=== PATIENT | male | born 1950 | race Caucasian/White ===

== ENCOUNTER 2017-03-07 12:24 | Inpatient (IN) | payer MEDICARE, OTHER ==
[2017-03-07 15:20] LABS: ADD MAN DIFF? NO
[2017-03-07 15:24] LABS: BASOPHILS % 0.1 % (0.0-2.0); HEMATOCRIT 38.6 % (42.0-52.0); HEMOGLOBIN 13.4 g/dl (14.0-18.0); LYMPHOCYTES # 0.7 10^3/ul (0.8-2.9); LYMPHOCYTES % 8.1 % (15.0-51.0); MEAN CORPUSCULAR HEMOGLOBIN 29.8 pg (29.0-33.0); MEAN CORPUSCULAR HGB CONC 34.7 g/dl (32.0-37.0); MEAN PLATELET VOLUME 9.4 fl (7.4-10.4); MONOCYTE # 1.4 10^3/ul (0.3-0.9); MONOCYTES % 15.8 % (0.0-11.0); NEUTROPHIL # 6.6 10^3/ul (1.6-7.5); NEUTROPHILS % 75.4 % (39.0-77.0); PLATELET COUNT 206 10^3/UL (140-415); RED BLOOD COUNT 4.49 10^6/ul (4.70-6.10); RED CELL DISTRIBUTION WIDTH 13.1 % (11.5-14.5)
[2017-03-07 15:24] LABS: WHITE BLOOD COUNT 8.8 10^3/ul (4.8-10.8)
[2017-03-07] MEDS ORDERED: ONDANSETRON 4 MG INJ IV ×2 (15:30→16:00)
[2017-03-07] MEDS: ONDANSETRON (ODT) 4 MG TAB ODT (15:30)
[2017-03-07] MEDS: HYDROCODONE/APAP (10/325) TAB PO (15:30)
[2017-03-07] MEDS ORDERED: ACETAMINOPHEN 325 MG TAB PO (15:30)
[2017-03-07 15:41] LABS: INR 0.95; PROTIME 12.8 Sec (11.9-14.9)
[2017-03-07 15:42] LABS: PARTIAL THROMBOPLASTIN TIME 31.1 Sec (25.0-35.0)
[2017-03-07 15:43] LABS: ANION GAP 14 (8-16); BLOOD UREA NITROGEN 16 mg/dl (7-20); CALCIUM 8.8 mg/dl (8.4-10.2); CARBON DIOXIDE 29 mmol/L (21-31); CHLORIDE 94 mmol/L (97-110); CREATININE 0.71 mg/dl (0.61-1.24); GLUCOSE 210 mg/dl (70-220); SODIUM 133 mmol/L (135-144)
[2017-03-07 15:57] LABS: TROPONIN-I < 0.012 ng/ml (0.00-0.12)
[2017-03-07] MEDS ORDERED: NACL 0.9% 3 ML SYG IV (16:00)
[2017-03-07] MEDS ORDERED: OXYCODONE/ACETAMINOPHEN (5/325) TAB PO (16:00)
[2017-03-07] MEDS ORDERED: DOCUSATE SODIUM 100 MG CAP PO (16:00)
[2017-03-07 16:51] LABS: HEMOGLOBIN A1C 7.6 % (0-5.9)
[2017-03-07] MEDS ORDERED: GLUCOSE GEL 15 GRAM TUBE PO ×2 (17:30)
[2017-03-07] MEDS ORDERED: DEXTROSE 50% 50 ML SYRINGE IV ×2 (17:30)
[2017-03-07] MEDS ORDERED: GLUCOSE GEL 15 GRAM TUBE BUCCAL (17:30)
[2017-03-07] MEDS ORDERED: GLUCAGON 1 MG INJ IM (17:30)
[2017-03-07] MEDS: SOD CHLORIDE 0.9% 1,000 ML IV (20:27)
[2017-03-07] MEDS: LORAZEPAM 2 MG INJ IV (20:28)
[2017-03-07] MEDS: INSULIN GLARGINE [LANtus] 3 ML PEN SC (21:00)
[2017-03-07] MEDS: INSULIN ASPART [NOVOLOG] 3 ML PEN SC ×2 (21:00→21:05)
[2017-03-07] MEDS ORDERED: INSULIN ASPART [NOVOLOG] 3 ML PEN SC (21:00)
[2017-03-07] MEDS: carBAMAZepine CHEW 100 MG CHEW PO (21:01)
[2017-03-07] MEDS: DIVALPROEX (EC) 250 MG TAB PO (21:02)
[2017-03-08] MEDS: INSULIN ASPART [NOVOLOG] 3 ML PEN SC ×8 (01:00→21:00)
[2017-03-08] MEDS: ACCU-CHEK XX ×2 (02:03→21:09)
[2017-03-08] MEDS: hydrALAzine 20 MG INJ IV (02:55)
[2017-03-08] MEDS: SOD CHLORIDE 0.9% 1,000 ML IV ×3 (05:20→18:40)
[2017-03-08] MEDS: PANTOPRAZOLE (EC) 40 MG TAB PO (06:13)
[2017-03-08 06:19] LABS: ADD MAN DIFF? NO
[2017-03-08 06:29] LABS: BASOPHILS % 0.1 % (0.0-2.0); HEMATOCRIT 38.5 % (42.0-52.0); HEMOGLOBIN 13.2 g/dl (14.0-18.0); LYMPHOCYTES # 0.7 10^3/ul (0.8-2.9); LYMPHOCYTES % 6.2 % (15.0-51.0); MEAN CORPUSCULAR HGB CONC 34.3 g/dl (32.0-37.0); MEAN CORPUSCULAR VOLUME 87.5 fl (82.0-101.0); MEAN PLATELET VOLUME 9.7 fl (7.4-10.4); MONOCYTE # 1.4 10^3/ul (0.3-0.9); MONOCYTES % 12.6 % (0.0-11.0); NEUTROPHILS % 80.7 % (39.0-77.0); PLATELET COUNT 190 10^3/UL (140-415); RED CELL DISTRIBUTION WIDTH 13.2 % (11.5-14.5)
[2017-03-08 06:29] LABS: WHITE BLOOD COUNT 11.2 10^3/ul (4.8-10.8)
[2017-03-08 07:11] LABS: ALBUMIN 3.5 g/dl (3.3-4.9); ANION GAP 13 (8-16); BLOOD UREA NITROGEN 15 mg/dl (7-20); CALCIUM 8.1 mg/dl (8.4-10.2); CARBON DIOXIDE 29 mmol/L (21-31); CHLORIDE 95 mmol/L (97-110); CREATININE 0.77 mg/dl (0.61-1.24); GLUCOSE 178 mg/dl (70-220); MAGNESIUM 1.9 mg/dl (1.7-2.5); POTASSIUM 4.1 mmol/L (3.5-5.1); SODIUM 133 mmol/L (135-144)
[2017-03-08] MEDS ORDERED: LORAZEPAM 2 MG INJ (07:25)
[2017-03-08] MEDS: ATENOLOL 100 MG TAB PO (08:41)
[2017-03-08] MEDS: carBAMAZepine CHEW 100 MG CHEW PO ×2 (08:42→21:01)
[2017-03-08] MEDS ORDERED: HYDROCHLOROTHIAZIDE 12.5 MG CAP PO (09:00)
[2017-03-08] MEDS: OXYCODONE/ACETAMINOPHEN (5/325) TAB PO (12:44)
[2017-03-08] MEDS: INSULIN GLARGINE [LANtus] 3 ML PEN SC (21:00)
[2017-03-08] MEDS: DIVALPROEX (EC) 250 MG TAB PO (21:01)
[2017-03-09] MEDS: SOD CHLORIDE 0.9% 1,000 ML IV ×2 (01:23→07:52)
[2017-03-09 05:57] LABS: ADD MAN DIFF? NO
[2017-03-09] MEDS: PANTOPRAZOLE (EC) 40 MG TAB PO (06:37)
[2017-03-09 06:41] LABS: BASOPHILS % 0.2 % (0.0-2.0); HEMATOCRIT 36.2 % (42.0-52.0); HEMOGLOBIN 12.4 g/dl (14.0-18.0); LYMPHOCYTES # 0.9 10^3/ul (0.8-2.9); LYMPHOCYTES % 9.9 % (15.0-51.0); MEAN CORPUSCULAR HEMOGLOBIN 29.7 pg (29.0-33.0); MEAN CORPUSCULAR HGB CONC 34.3 g/dl (32.0-37.0); MEAN CORPUSCULAR VOLUME 86.8 fl (82.0-101.0); MEAN PLATELET VOLUME 9.8 fl (7.4-10.4); MONOCYTE # 0.9 10^3/ul (0.3-0.9); MONOCYTES % 9.3 % (0.0-11.0); NEUTROPHIL # 7.3 10^3/ul (1.6-7.5); NEUTROPHILS % 80.1 % (39.0-77.0); PLATELET COUNT 182 10^3/UL (140-415); RED BLOOD COUNT 4.17 10^6/ul (4.70-6.10)
[2017-03-09 06:41] LABS: WHITE BLOOD COUNT 9.2 10^3/ul (4.8-10.8)
[2017-03-09 07:14] LABS: ANION GAP 13 (8-16); BLOOD UREA NITROGEN 16 mg/dl (7-20); CALCIUM 7.3 mg/dl (8.4-10.2); CARBON DIOXIDE 25 mmol/L (21-31); CHLORIDE 99 mmol/L (97-110); CREATININE 0.67 mg/dl (0.61-1.24); GLUCOSE 143 mg/dl (70-220); MAGNESIUM 2.1 mg/dl (1.7-2.5); PHOSPHORUS 2.4 mg/dl (2.5-4.9); POTASSIUM 3.5 mmol/L (3.5-5.1); SODIUM 133 mmol/L (135-144)
[2017-03-09] MEDS: hydrALAzine 20 MG INJ IV ×2 (07:46→23:22)
[2017-03-09] MEDS: INSULIN ASPART [NOVOLOG] 3 ML PEN SC ×7 (08:36→21:00)
[2017-03-09] MEDS: LISINOPRIL 5 MG TAB PO (08:44)
[2017-03-09] MEDS: OXYCODONE/ACETAMINOPHEN (5/325) TAB PO (08:44)
[2017-03-09] MEDS: carBAMAZepine CHEW 100 MG CHEW PO ×2 (08:45→20:41)
[2017-03-09] MEDS: ATENOLOL 100 MG TAB PO (08:45)
[2017-03-09] MEDS: MAGNESIUM HYDROXIDE 30ML CUP PO (10:10)
[2017-03-09] MEDS: DEXTROSE 5%-0.45% NACL 1,000 ML IV (15:29)
[2017-03-09] MEDS: DIVALPROEX (EC) 250 MG TAB PO (20:41)
[2017-03-09] MEDS: ACCU-CHEK XX (21:01)
[2017-03-09] MEDS: INSULIN GLARGINE [LANtus] 3 ML PEN SC (21:01)
[2017-03-10] MEDS ORDERED: HALOPERIDOL 5 MG INJ IM
[2017-03-10] MEDS: NORepinephrine 8MG/250 ML (PMX 250 ML IV (00:15)
[2017-03-10] MEDS: hydrALAzine 20 MG INJ IV (00:57)
[2017-03-10] MEDS: FUROSEMIDE 20 MG INJ IV ×2 (01:02→01:54)
[2017-03-10] MEDS: LEVALBUTEROL (NEB) 0.63 MG/3 ML AMP HHN (01:04)
[2017-03-10] MEDS ORDERED: EPINEPHrine 0.1 MG/ML SYG (03:00)
[2017-03-10] MEDS: LABETALOL HCL 20MG INJ IV (03:00)
[2017-03-10] MEDS ORDERED: NA BICARBONATE 8.4% 50 ML SYG (03:00)
[2017-03-10] MEDS ORDERED: AMIODARONE 150 MG INJ (03:00)
[2017-03-10] MEDS ORDERED: ATROPINE 1 MG/10 ML SYRINGE (03:00)
[2017-03-10 03:05] LABS: B-TYPE NATRIURETIC PEPTIDE 767 PG/ML (0-125)
[2017-03-10 03:58] LABS: ADD MAN DIFF? NO
[2017-03-10 04:08] LABS: ABNORMAL IP MESSAGE 1; BASOPHIL # 0.1 10^3/ul (0.0-0.1); BASOPHILS % 0.4 % (0.0-2.0); EOSINOPHILS % 0.1 % (0.0-7.0); HEMATOCRIT 46.3 % (42.0-52.0); HEMOGLOBIN 15.3 g/dl (14.0-18.0); LYMPHOCYTES # 2.3 10^3/ul (0.8-2.9); LYMPHOCYTES % 9.8 % (15.0-51.0); MEAN CORPUSCULAR HEMOGLOBIN 29.5 pg (29.0-33.0); MEAN CORPUSCULAR VOLUME 89.4 fl (82.0-101.0); MEAN PLATELET VOLUME 9.9 fl (7.4-10.4); MONOCYTE # 1.7 10^3/ul (0.3-0.9); MONOCYTES % 7.2 % (0.0-11.0); NEUTROPHIL # 18.1 10^3/ul (1.6-7.5); NEUTROPHILS % 78.3 % (39.0-77.0); PLATELET COUNT 299 10^3/UL (140-415); POSITIVE DIFF @See below; RED BLOOD COUNT 5.18 10^6/ul (4.70-6.10); RED CELL DISTRIBUTION WIDTH 13.1 % (11.5-14.5)
[2017-03-10 04:08] LABS: WHITE BLOOD COUNT 23.1 10^3/ul (4.8-10.8)
[2017-03-10 04:22] LABS: CREATINE KINASE 153 IU/L (23-200)
[2017-03-10 04:25] LABS: ALBUMIN 3.7 g/dl (3.3-4.9); ANION GAP 20 (8-16); BLOOD UREA NITROGEN 17 mg/dl (7-20); CALCIUM 7.8 mg/dl (8.4-10.2); CARBON DIOXIDE 22 mmol/L (21-31); CHLORIDE 99 mmol/L (97-110); CREATININE 0.84 mg/dl (0.61-1.24); GLUCOSE 297 mg/dl (70-220); MAGNESIUM 2.4 mg/dl (1.7-2.5); PHOSPHORUS 5.4 mg/dl (2.5-4.9); POTASSIUM 3.4 mmol/L (3.5-5.1); SODIUM 138 mmol/L (135-144)
[2017-03-10 04:35] LABS: CK INDEX 1.5; TROPONIN-I 0.038 ng/ml (0.00-0.12)
[2017-03-10 04:44] LABS: CK-MB 2.31 ng/ml (0.0-2.4)
[2017-03-10] MEDS ORDERED: LEVALBUTEROL (NEB) 0.63 MG/3 ML AMP HHN (05:00)
[2017-03-10 05:19] LABS: AADO2 Arterial 313.4 mmHg (7.0-24.0); AADO2 Arterial 505.3 mmHg (7.0-24.0); Allen Test ACCEPTAB; Arterial Base Excess -0.8 mmol/L (-3.0-3); Arterial Base Excess -4.6 mmol/L (-3.0-3); Arterial COHb 0.3 % (0.0-3.0); Arterial Fraction of Oxyhgb 89.5 % (93.0-99.0); Arterial Fraction of Oxyhgb 98.4 % (93.0-99.0); Arterial HCO3 26.7 mmol/L (22.0-26.0); Arterial MetHb 0.3 % (0.0-1.5); Arterial Total Hemglobin 15.1 g/dl (12.0-18.0); Arterial Total Hemglobin 16.5 g/dl (12.0-18.0); Arterial pCO2 40.6 mmhg (35-45); MODE MASK - SIMPLE; MODE VENT - AC; Site Right Radial
[2017-03-10] MEDS: PANTOPRAZOLE (EC) 40 MG TAB PO (05:54)
[2017-03-10] MEDS ORDERED: PROPOFOL 100 ML (07:24)
[2017-03-10 07:25] LABS: CK INDEX 2.2; CREATINE KINASE 185 IU/L (23-200)
[2017-03-10 07:50] LABS: CK-MB 3.98 ng/ml (0.0-2.4)
[2017-03-10 07:53] LABS: TROPONIN-I 0.176 ng/ml (0.00-0.12)
[2017-03-10] MEDS ORDERED: MIDAZOLAM (DRIP) 50 mg/50 mL 50 ML IV (08:00)
[2017-03-10] MEDS: INSULIN ASPART [NOVOLOG] 3 ML PEN SC ×4 (08:57→17:22)
[2017-03-10] MEDS: LISINOPRIL 5 MG TAB PO (09:00)
[2017-03-10 09:02] LABS: AADO2 Arterial 571.2 mmHg (7.0-24.0); Allen Test ACCEPTAB; Arterial Base Excess -3.1 mmol/L (-3.0-3); Arterial Blood Gas Oxygen Sat 97.6 mmHG (95.0-98.0); Arterial COHb 0.3 % (0.0-3.0); Arterial Fraction of Oxyhgb 97.1 % (93.0-99.0); Arterial HCO3 22.4 mmol/L (22.0-26.0); Arterial MetHb 0.2 % (0.0-1.5); Arterial Total Hemglobin 15.6 g/dl (12.0-18.0); Arterial pCO2 41.5 mmhg (35-45); MODE VENT - AC; Site Right Radial
[2017-03-10] MEDS ORDERED: FENTAnyl (DRIP) 1000 mcg/100mL 100 ML IV (09:25)
[2017-03-10] MEDS: FENTAnyl (DRIP) 1000 mcg/100mL 100 ML IV ×2 (09:49→19:45)
[2017-03-10] MEDS: PROPOFOL 100 ML IV ×2 (09:55→20:21)
[2017-03-10] MEDS ORDERED: VANCOMYCIN IV PER PHARMACY XX (10:00)
[2017-03-10] MEDS ORDERED: DEXTROSE 5%-0.45% NACL 1,000 ML IV (10:00)
[2017-03-10] MEDS: ATENOLOL 100 MG TAB PO (10:27)
[2017-03-10] MEDS: POTASSIUM CHLORIDE 50 ML IVPB ×3 (10:48→14:27)
[2017-03-10] MEDS: VANCOMYCIN 1.75 GM in NS 500 ML IVPB (10:49)
[2017-03-10] MEDS ORDERED: INSULIN ASPART [NOVOLOG] 3 ML PEN SC (12:00)
[2017-03-10] MEDS: carBAMAZepine CHEW 100 MG CHEW PO ×2 (12:16→20:20)
[2017-03-10] MEDS: PIPER-TAZO 3.375 GM IV (PMX) 50 ML IVPB ×2 (12:17→17:16)
[2017-03-10] MEDS: Insulin NOVOLOG SS MODERATE Algorithm(NPO/TPN/ENTERAL FEEDS) SC ×2 (12:28→17:23)
[2017-03-10] MEDS: LIDOCAINE 1% (MPF) 5 ML VIAL SC (13:15)
[2017-03-10] MEDS: SOD CHLORIDE 0.9% 100 ML (13:30)
[2017-03-10 14:10] LABS: CREATINE KINASE 284 IU/L (23-200)
[2017-03-10 14:32] LABS: CK-MB 8.48 ng/ml (0.0-2.4); TROPONIN-I 0.805 ng/ml (0.00-0.12)
[2017-03-10 16:22] LABS: ADD UMIC YES; UR ASCORBIC ACID NEGATIVE (NEGATIVE); UR BILIRUBIN (Dip) NEGATIVE (NEGATIVE); UR BLOOD (Dip) 2+ mg/dL (NEGATIVE); UR CLARITY SLIGHTLY CLOUDY (CLEAR); UR COLOR YELLOW (YELLOW); UR GLUCOSE (Dip) 3+ mg/dL (NEGATIVE); UR KETONES (Dip) 1+ mg/dL (NEGATIVE); UR LEUKOCYTE ESTERASE (Dip) NEGATIVE Leu/ul (NEGATIVE); UR MUCUS FEW /HPF (NONE SEEN); UR NITRITE (Dip) NEGATIVE (NEGATIVE); UR RBC 6 /HPF (0-5); UR SPECIFIC GRAVITY (Dip) 1.015 (1.003-1.030); UR SQUAMOUS EPITHELIAL CELL FEW /HPF (FEW); UR TOTAL PROTEIN (Dip) 3+ mg/dl (NEGATIVE); UR UROBILINOGEN (Dip) NEGATIVE (NEGATIVE); UR WBC 10 /HPF (0-5)
[2017-03-10] MEDS: SUCCINYLCHOLINE CHLORIDE 100 MG/5 ML SYG IV (19:00)
[2017-03-10] MEDS: ETOMIDATE 20 MG INJ IV (19:30)
[2017-03-10] MEDS: SOD CHLORIDE 0.9% 1,000 ML IV (19:47)
[2017-03-10] MEDS: ALBUTEROL/IPRATROPIUM (NEB) 3 ML AMP HHN (20:00)
[2017-03-10] MEDS: INSULIN GLARGINE [LANtus] 3 ML PEN SC (21:00)
[2017-03-10] MEDS: METHYLPREDNISOLONE 125 MG INJ IV (23:07)
[2017-03-10] MEDS: DIVALPROEX (EC) 250 MG TAB PO (23:07)
[2017-03-10] MEDS: VANCOMYCIN 1.25 GM in SODIUM CHLORIDE 0.45 % 250 ML IVPB (23:08)
[2017-03-10] MEDS: ALBUMIN HUMAN 25% 100 ML IV (23:21)
[2017-03-10] MEDS: SOD CHLORIDE 0.9% 500 ML IV (23:41)
[2017-03-11] MEDS: PIPER-TAZO 3.375 GM IV (PMX) 50 ML IVPB ×4 (00:42→22:16)
[2017-03-11] MEDS: ACCU-CHEK XX (01:25)
[2017-03-11] MEDS: FUROSEMIDE 20 MG TAB PO (03:00)
[2017-03-11] MEDS: Insulin NOVOLOG SS MODERATE Algorithm(NPO/TPN/ENTERAL FEEDS) SC ×2 (06:00)
[2017-03-11] MEDS: METHYLPREDNISOLONE 125 MG INJ IV ×3 (06:06→21:14)
[2017-03-11] MEDS: SOD CHLORIDE 0.9% 1,000 ML IV ×3 (06:06→23:54)
[2017-03-11] MEDS: FENTAnyl (DRIP) 1000 mcg/100mL 100 ML IV ×2 (06:08→15:25)
[2017-03-11 06:32] LABS: ADD MAN DIFF? NO
[2017-03-11 06:38] LABS: ABNORMAL IP MESSAGE 1; BASOPHILS % 0.1 % (0.0-2.0); HEMATOCRIT 31.4 % (42.0-52.0); HEMOGLOBIN 10.8 g/dl (14.0-18.0); LYMPHOCYTES # 0.6 10^3/ul (0.8-2.9); LYMPHOCYTES % 4.3 % (15.0-51.0); MEAN CORPUSCULAR HEMOGLOBIN 30.8 pg (29.0-33.0); MEAN CORPUSCULAR HGB CONC 34.4 g/dl (32.0-37.0); MEAN CORPUSCULAR VOLUME 89.5 fl (82.0-101.0); MEAN PLATELET VOLUME 10.6 fl (7.4-10.4); MONOCYTE # 0.7 10^3/ul (0.3-0.9); MONOCYTES % 5.4 % (0.0-11.0); NEUTROPHIL # 11.4 10^3/ul (1.6-7.5); NEUTROPHILS % 89.7 % (39.0-77.0); PLATELET COUNT 179 10^3/UL (140-415); POSITIVE DIFF @See below; RED BLOOD COUNT 3.51 10^6/ul (4.70-6.10); RED CELL DISTRIBUTION WIDTH 13.4 % (11.5-14.5)
[2017-03-11 06:38] LABS: WHITE BLOOD COUNT 12.7 10^3/ul (4.8-10.8)
[2017-03-11] MEDS: INSULIN ASPART [NOVOLOG] 3 ML PEN SC ×4 (07:35→21:22)
[2017-03-11 07:47] LABS: ANION GAP 16 (8-16); BLOOD UREA NITROGEN 31 mg/dl (7-20); CALCIUM 6.6 mg/dl (8.4-10.2); CARBON DIOXIDE 22 mmol/L (21-31); CHLORIDE 103 mmol/L (97-110); CREATININE 1.52 mg/dl (0.61-1.24); GLUCOSE 104 mg/dl (70-220); MAGNESIUM 2.1 mg/dl (1.7-2.5); PHOSPHORUS 2.1 mg/dl (2.5-4.9); POTASSIUM 3.8 mmol/L (3.5-5.1); SODIUM 137 mmol/L (135-144)
[2017-03-11] MEDS: carBAMAZepine CHEW 100 MG CHEW PO ×2 (09:13→21:14)
[2017-03-11] MEDS: ATENOLOL 100 MG TAB PO (09:13)
[2017-03-11] MEDS: VANCOMYCIN 1.25 GM in SODIUM CHLORIDE 0.45 % 250 ML IVPB (09:14)
[2017-03-11] MEDS: LISINOPRIL 5 MG TAB PO (09:14)
[2017-03-11] MEDS: PANTOPRAZOLE 40 MG INJ IV (09:22)
[2017-03-11] MEDS: PROPOFOL 100 ML IV ×2 (09:30→21:30)
[2017-03-11] MEDS ORDERED: HYPOGLYCEMIA PROTOCOL when Glucose is <70 mg/dL or symptomatic <90 mg/dL. XX (10:30)
[2017-03-11] MEDS ORDERED: Discontinue current oral sulfonylureas (glyburide, glipizide, and/or glimepiride) prior to XX (10:30)
[2017-03-11] MEDS ORDERED: INSULIN ASPART [NOVOLOG] 3 ML PEN SC ×4 (11:30→13:00)
[2017-03-11] MEDS: Discontinue current oral sulfonylureas (glyburide, glipizide, and/or glimepiride) prior to XX (11:59)
[2017-03-11] MEDS: HYPOGLYCEMIA PROTOCOL when Glucose is <70 mg/dL or symptomatic <90 mg/dL. XX (12:00)
[2017-03-11] MEDS: NEUTRA-PHOS 250 MG PACKET GTB ×2 (12:42→21:15)
[2017-03-11 17:40] LABS: CREATININE,URINE RANDOM 124.77 mg/dl (20-370)
[2017-03-11 17:44] LABS: SODIUM,URINE RANDOM < 13 mmol/L (30-90)
[2017-03-11] MEDS: VALPROIC ACID LIQUID CUP 250 MG/5 ML CUP NGT (21:14)
[2017-03-11] MEDS: INSULIN GLARGINE [LANtus] 3 ML PEN SC (21:23)
[2017-03-12] MEDS: INSULIN ASPART [NOVOLOG] 3 ML PEN SC ×6 (01:28→21:45)
[2017-03-12] MEDS: FENTAnyl (DRIP) 1000 mcg/100mL 100 ML IV ×2 (01:40→13:00)
[2017-03-12] MEDS ORDERED: ACCU-CHEK XX (02:00)
[2017-03-12] MEDS: ACCU-CHEK XX (02:10)
[2017-03-12] MEDS: PROPOFOL 100 ML IV ×4 (05:08→23:29)
[2017-03-12] MEDS: PANTOPRAZOLE 40 MG INJ IV (05:58)
[2017-03-12] MEDS: PIPER-TAZO 3.375 GM IV (PMX) 50 ML IVPB ×3 (05:58→21:42)
[2017-03-12] MEDS: METHYLPREDNISOLONE 125 MG INJ IV ×3 (05:58→21:41)
[2017-03-12 06:04] LABS: ADD MAN DIFF? NO
[2017-03-12 06:18] LABS: ABNORMAL IP MESSAGE 1; BASOPHILS % 0.1 % (0.0-2.0); HEMATOCRIT 31.9 % (42.0-52.0); HEMOGLOBIN 10.7 g/dl (14.0-18.0); LYMPHOCYTES # 0.5 10^3/ul (0.8-2.9); LYMPHOCYTES % 4.4 % (15.0-51.0); MEAN CORPUSCULAR HEMOGLOBIN 30.1 pg (29.0-33.0); MEAN CORPUSCULAR HGB CONC 33.5 g/dl (32.0-37.0); MEAN CORPUSCULAR VOLUME 89.6 fl (82.0-101.0); MEAN PLATELET VOLUME 10.8 fl (7.4-10.4); MONOCYTE # 0.8 10^3/ul (0.3-0.9); MONOCYTES % 6.8 % (0.0-11.0); NEUTROPHIL # 9.9 10^3/ul (1.6-7.5); PLATELET COUNT 201 10^3/UL (140-415); POSITIVE DIFF @See below; RED BLOOD COUNT 3.56 10^6/ul (4.70-6.10); RED CELL DISTRIBUTION WIDTH 13.5 % (11.5-14.5)
[2017-03-12 06:18] LABS: WHITE BLOOD COUNT 11.2 10^3/ul (4.8-10.8)
[2017-03-12 06:37] LABS: VANCOMYCIN,TROUGH 19.1 ug/ml (10.0-20.0)
[2017-03-12 06:40] LABS: CREATINE KINASE 858 IU/L (23-200)
[2017-03-12 06:51] LABS: ANION GAP 20 (8-16); BLOOD UREA NITROGEN 54 mg/dl (7-20); CALCIUM 7.1 mg/dl (8.4-10.2); CARBON DIOXIDE 22 mmol/L (21-31); CHLORIDE 104 mmol/L (97-110); CREATININE 1.89 mg/dl (0.61-1.24); GLUCOSE 199 mg/dl (70-220); MAGNESIUM 2.6 mg/dl (1.7-2.5); PHOSPHORUS 3.5 mg/dl (2.5-4.9); POTASSIUM 3.5 mmol/L (3.5-5.1); SODIUM 142 mmol/L (135-144)
[2017-03-12 06:52] LABS: IRON 32 ug/dl (35-150)
[2017-03-12 06:53] LABS: CK INDEX 0.5; TROPONIN-I 0.144 ng/ml (0.00-0.12)
[2017-03-12 07:01] LABS: % IRON SATURATION 20 % SAT (22-52); TOTAL IRON BINDING CAPACITY 164 ug/dl (241-421)
[2017-03-12] MEDS: VANCOMYCIN 1.25 GM in SODIUM CHLORIDE 0.45 % 250 ML IVPB (10:00)
[2017-03-12] MEDS: NEUTRA-PHOS 250 MG PACKET GTB (10:25)
[2017-03-12] MEDS: ATENOLOL 100 MG TAB PO (10:26)
[2017-03-12] MEDS: VALPROIC ACID LIQUID CUP 250 MG/5 ML CUP NGT ×2 (10:26→21:41)
[2017-03-12] MEDS: carBAMAZepine CHEW 100 MG CHEW PO ×2 (10:29→21:42)
[2017-03-12] MEDS: SOD CHLORIDE 0.9% 1,000 ML IV (13:00)
[2017-03-12] MEDS: INSULIN GLARGINE [LANtus] 3 ML PEN SC (21:46)
[2017-03-13] MEDS: ACCU-CHEK XX (01:58)
[2017-03-13] MEDS: SOD CHLORIDE 0.9% 1,000 ML IV ×2 (02:01→13:53)
[2017-03-13] MEDS: INSULIN ASPART [NOVOLOG] 3 ML PEN SC ×6 (02:02→20:36)
[2017-03-13] MEDS: hydrALAzine 20 MG INJ IV ×3 (03:09→22:38)
[2017-03-13 05:17] LABS: ADD MAN DIFF? NO
[2017-03-13 05:25] LABS: WHITE BLOOD COUNT 11.5 10^3/ul (4.8-10.8)
[2017-03-13 05:25] LABS: ABNORMAL IP MESSAGE 1; BASOPHILS % 0.2 % (0.0-2.0); HEMATOCRIT 33.9 % (42.0-52.0); HEMOGLOBIN 11.3 g/dl (14.0-18.0); LYMPHOCYTES # 0.5 10^3/ul (0.8-2.9); LYMPHOCYTES % 4.3 % (15.0-51.0); MEAN CORPUSCULAR HEMOGLOBIN 29.7 pg (29.0-33.0); MEAN CORPUSCULAR HGB CONC 33.3 g/dl (32.0-37.0); MEAN PLATELET VOLUME 10.4 fl (7.4-10.4); MONOCYTE # 0.8 10^3/ul (0.3-0.9); MONOCYTES % 6.5 % (0.0-11.0); NEUTROPHILS % 86.5 % (39.0-77.0); PLATELET COUNT 230 10^3/UL (140-415); POSITIVE DIFF @See below; RED BLOOD COUNT 3.81 10^6/ul (4.70-6.10); RED CELL DISTRIBUTION WIDTH 13.3 % (11.5-14.5)
[2017-03-13] MEDS: PANTOPRAZOLE 40 MG INJ IV (05:32)
[2017-03-13] MEDS: METHYLPREDNISOLONE 125 MG INJ IV (05:32)
[2017-03-13] MEDS: PIPER-TAZO 3.375 GM IV (PMX) 50 ML IVPB ×3 (05:32→20:26)
[2017-03-13 06:27] LABS: ANION GAP 16 (8-16); BLOOD UREA NITROGEN 54 mg/dl (7-20); CALCIUM 7.1 mg/dl (8.4-10.2); CARBON DIOXIDE 23 mmol/L (21-31); CHLORIDE 109 mmol/L (97-110); CREATININE 1.53 mg/dl (0.61-1.24); GLUCOSE 217 mg/dl (70-220); MAGNESIUM 2.8 mg/dl (1.7-2.5); PHOSPHORUS 2.7 mg/dl (2.5-4.9); POTASSIUM 3.6 mmol/L (3.5-5.1); SODIUM 144 mmol/L (135-144)
[2017-03-13] MEDS: carBAMAZepine CHEW 100 MG CHEW PO ×2 (08:17→20:25)
[2017-03-13] MEDS: VALPROIC ACID LIQUID CUP 250 MG/5 ML CUP NGT ×2 (08:18→20:25)
[2017-03-13] MEDS: ATENOLOL 100 MG TAB PO ×2 (08:29→20:25)
[2017-03-13] MEDS ORDERED: AMLODIPINE 5 MG TAB PO (09:30)
[2017-03-13] MEDS ORDERED: LORAZEPAM 2 MG INJ IV (09:30)
[2017-03-13] MEDS: AMLODIPINE 10 MG TAB PO (09:55)
[2017-03-13] MEDS: VANCOMYCIN 1.25 GM in SODIUM CHLORIDE 0.45 % 250 ML IVPB (09:58)
[2017-03-13] MEDS: PROPOFOL 100 ML IV (13:51)
[2017-03-13] MEDS: METHYLPREDNISOLONE 40 MG INJ IV ×2 (14:09→20:26)
[2017-03-13] MEDS: INSULIN GLARGINE [LANtus] 3 ML PEN SC (20:37)
[2017-03-13] MEDS: LABETALOL HCL 20MG INJ IV (22:26)
[2017-03-14] MEDS: INSULIN ASPART [NOVOLOG] 3 ML PEN SC ×3 (00:12→08:34)
[2017-03-14] MEDS: ACCU-CHEK XX ×15 (00:18→23:30)
[2017-03-14] MEDS: PROPOFOL 100 ML IV ×2 (01:32→10:33)
[2017-03-14] MEDS: LABETALOL HCL 20MG INJ IV ×2 (01:45→10:26)
[2017-03-14] MEDS: hydrALAzine 20 MG INJ IV ×4 (02:24→20:15)
[2017-03-14] MEDS: PIPER-TAZO 3.375 GM IV (PMX) 50 ML IVPB ×3 (05:46→20:20)
[2017-03-14] MEDS: METHYLPREDNISOLONE 40 MG INJ IV ×3 (05:46→20:21)
[2017-03-14] MEDS: PANTOPRAZOLE 40 MG INJ IV (05:46)
[2017-03-14] MEDS: carBAMAZepine CHEW 100 MG CHEW PO ×2 (08:22→20:16)
[2017-03-14] MEDS: VALPROIC ACID LIQUID CUP 250 MG/5 ML CUP NGT ×2 (08:23→20:15)
[2017-03-14] MEDS: morphine LIQ (10 MG/5 ML) CUP PO (08:24)
[2017-03-14] MEDS: ATENOLOL 100 MG TAB PO ×2 (08:25→20:17)
[2017-03-14] MEDS: AMLODIPINE 10 MG TAB PO (08:25)
[2017-03-14 09:03] LABS: ABNORMAL IP MESSAGE 1; HEMOGLOBIN 12.2 g/dl (14.0-18.0); MEAN CORPUSCULAR HEMOGLOBIN 29.6 pg (29.0-33.0); MEAN CORPUSCULAR HGB CONC 33.9 g/dl (32.0-37.0); MEAN CORPUSCULAR VOLUME 87.4 fl (82.0-101.0); MEAN PLATELET VOLUME 10.2 fl (7.4-10.4); PLATELET COUNT 244 10^3/UL (140-415); POSITIVE DIFF @See below; RED BLOOD COUNT 4.12 10^6/ul (4.70-6.10); RED CELL DISTRIBUTION WIDTH 13.5 % (11.5-14.5)
[2017-03-14 09:07] LABS: ADD MAN DIFF? YES
[2017-03-14 09:10] LABS: ANION GAP 15 (8-16); BLOOD UREA NITROGEN 55 mg/dl (7-20); CALCIUM 7.1 mg/dl (8.4-10.2); CARBON DIOXIDE 24 mmol/L (21-31); CHLORIDE 112 mmol/L (97-110); CREATININE 1.14 mg/dl (0.61-1.24); GLUCOSE 247 mg/dl (70-220); MAGNESIUM 2.9 mg/dl (1.7-2.5); PHOSPHORUS 2.2 mg/dl (2.5-4.9); POTASSIUM 3.2 mmol/L (3.5-5.1); SODIUM 148 mmol/L (135-144)
[2017-03-14] MEDS: VANCOMYCIN 1.25 GM in SODIUM CHLORIDE 0.45 % 250 ML IVPB (10:25)
[2017-03-14] MEDS ORDERED: DEXTROSE 50% 50 ML SYRINGE IV ×2 (10:30)
[2017-03-14] MEDS ORDERED: LABETALOL HCL 20MG INJ IV (10:30)
[2017-03-14] MEDS: POTASSIUM CHLORIDE 50 ML IVPB ×3 (10:32→14:39)
[2017-03-14] MEDS: SOD CHLORIDE 0.45% 1,000 ML IV ×2 (10:34→20:14)
[2017-03-14 10:45] LABS: BAND NEUTROPHILS #M 0.4 10^3/ul (0.0-0.6); BAND NEUTROPHILS % (M) 6 % (0-4); LYMPHOCYTES % (M) 13 % (15-51); METAMYELOCYTES #M 0.4 10^3/ul (0.0-0.0); METAMYELOCYTES %M 5 % (0-0); MONOCYTE #M 0.2 10^3/ul (0.3-0.9); MONOCYTES % (M) 3 % (0-11); PLATELET ESTIMATE NORMAL; SEGMENTED NEUTROPHILS (M) % 74 % (39-77); SMUDGE%M 2 % (0-0)
[2017-03-14] MEDS: INSULIN HUMAN REGULAR 100 UNIT in SOD CHLORIDE 0.9% 99 ML IV (12:55)
[2017-03-14 13:43] LABS: AADO2 Arterial 93.5 mmHg (7.0-24.0); Allen Test ACCEPTAB; Arterial Base Excess -0.5 mmol/L (-3.0-3); Arterial Blood Gas Oxygen Sat 96.3 mmHG (95.0-98.0); Arterial COHb 0.3 % (0.0-3.0); Arterial Fraction of Oxyhgb 95.9 % (93.0-99.0); Arterial HCO3 22.4 mmol/L (22.0-26.0); Arterial MetHb 0.1 % (0.0-1.5); Arterial Total Hemglobin 13.7 g/dl (12.0-18.0); Arterial pCO2 31.8 mmhg (35-45); Blood Gas PS 10; MODE VENT - CPAP; Site Right Radial
[2017-03-14] MEDS: CLONIDINE 0.2 MG/24 HR PATCH TRANSDERM (15:23)
[2017-03-14] MEDS ORDERED: PHENYLephrine 20MG IN 250 ML 0 ML (15:28)
[2017-03-14] MEDS: ALBUTEROL/IPRATROPIUM (NEB) 3 ML AMP HHN ×2 (15:59→20:11)
[2017-03-14] MEDS: niCARdipine 25 MG in SOD CHLORIDE 0.9% 240 ML IV ×2 (16:41→20:48)
[2017-03-14] MEDS ORDERED: INSULIN GLARGINE [LANtus] 3 ML PEN SC (21:00)
[2017-03-15] MEDS: ACCU-CHEK XX ×25 (00:30→23:32)
[2017-03-15] MEDS: ALBUTEROL/IPRATROPIUM (NEB) 3 ML AMP HHN ×4 (01:18→19:46)
[2017-03-15] MEDS: niCARdipine 25 MG in SOD CHLORIDE 0.9% 240 ML IV ×6 (03:11→21:24)
[2017-03-15] MEDS: METHYLPREDNISOLONE 40 MG INJ IV ×3 (05:18→21:22)
[2017-03-15] MEDS: PANTOPRAZOLE 40 MG INJ IV (05:19)
[2017-03-15] MEDS: SOD CHLORIDE 0.45% 1,000 ML IV ×2 (05:20→15:45)
[2017-03-15] MEDS: PIPER-TAZO 3.375 GM IV (PMX) 50 ML IVPB ×3 (05:21→21:22)
[2017-03-15 05:52] LABS: ADD MAN DIFF? NO
[2017-03-15 05:56] LABS: WHITE BLOOD COUNT 8.4 10^3/ul (4.8-10.8)
[2017-03-15 05:56] LABS: ABNORMAL IP MESSAGE 1; BASOPHIL # 0.1 10^3/ul (0.0-0.1); BASOPHILS % 0.7 % (0.0-2.0); HEMATOCRIT 34.8 % (42.0-52.0); HEMOGLOBIN 11.6 g/dl (14.0-18.0); LYMPHOCYTES # 0.5 10^3/ul (0.8-2.9); LYMPHOCYTES % 5.7 % (15.0-51.0); MEAN CORPUSCULAR HEMOGLOBIN 29.8 pg (29.0-33.0); MEAN CORPUSCULAR HGB CONC 33.3 g/dl (32.0-37.0); MEAN CORPUSCULAR VOLUME 89.5 fl (82.0-101.0); MONOCYTE # 0.6 10^3/ul (0.3-0.9); MONOCYTES % 7.2 % (0.0-11.0); NEUTROPHIL # 6.3 10^3/ul (1.6-7.5); NEUTROPHILS % 74.5 % (39.0-77.0); PLATELET COUNT 247 10^3/UL (140-415); POSITIVE DIFF @See below; RED BLOOD COUNT 3.89 10^6/ul (4.70-6.10); RED CELL DISTRIBUTION WIDTH 13.6 % (11.5-14.5)
[2017-03-15 06:20] LABS: ANION GAP 13 (8-16); BLOOD UREA NITROGEN 55 mg/dl (7-20); CALCIUM 6.1 mg/dl (8.4-10.2); CARBON DIOXIDE 23 mmol/L (21-31); CHLORIDE 113 mmol/L (97-110); CREATININE 1.02 mg/dl (0.61-1.24); GLUCOSE 353 mg/dl (70-220); MAGNESIUM 2.7 mg/dl (1.7-2.5); PHOSPHORUS 2.4 mg/dl (2.5-4.9); POTASSIUM 3.2 mmol/L (3.5-5.1); SODIUM 146 mmol/L (135-144)
[2017-03-15] MEDS: hydrALAzine 20 MG INJ IV ×3 (06:48→21:50)
[2017-03-15 07:53] LABS: ANISOCYTOSIS 2+ (0-0); BAND NEUTROPHILS #M 0.5 10^3/ul (0.0-0.6); BAND NEUTROPHILS % (M) 7 % (0-4); GIANT THROMBO% (M) 1 % (0-0); LYMPHOCYTES #M 0.5 10^3/ul (0.8-2.9); LYMPHOCYTES % (M) 7 % (15-51); METAMYELOCYTES #M 0.6 10^3/ul (0.0-0.0); METAMYELOCYTES %M 8 % (0-0); MICROCYTOSIS 1+ (0-0); MONOCYTE #M 0.5 10^3/ul (0.3-0.9); MONOCYTES % (M) 7 % (0-11); MYELOCYTES #M 0.1 10^3/ul (0.0-0.0); MYELOCYTES % (M) 2 % (0-0); PLATELET ESTIMATE NORMAL; POIKILOCYTOSIS 1+ (0-0); POLYCHROMASIA 1+ (0-0); PROMYELOCYTES % (M) 1 % (0-0); SEG NEUT #M 5.8 10^3/ul (1.7-7.5); SEGMENTED NEUTROPHILS (M) % 68 % (39-77); SMUDGE%M 2 % (0-0)
[2017-03-15] MEDS: ATENOLOL 100 MG TAB PO ×2 (09:00→21:00)
[2017-03-15] MEDS: carBAMAZepine CHEW 100 MG CHEW PO ×2 (09:00→21:00)
[2017-03-15] MEDS: AMLODIPINE 10 MG TAB PO (09:00)
[2017-03-15] MEDS: VALPROIC ACID LIQUID CUP 250 MG/5 ML CUP NGT ×2 (09:00→21:00)
[2017-03-15] MEDS: INSULIN HUMAN REGULAR 100 UNIT in SOD CHLORIDE 0.9% 99 ML IV (09:10)
[2017-03-15 09:55] LABS: VANCOMYCIN,TROUGH 13.2 ug/ml (10.0-20.0)
[2017-03-15] MEDS: VANCOMYCIN 1.25 GM in SODIUM CHLORIDE 0.45 % 250 ML IVPB (10:52)
[2017-03-15] MEDS: POTASSIUM CHLORIDE 50 ML IVPB ×2 (12:02→13:59)
[2017-03-16] MEDS: ACCU-CHEK XX ×25 (01:09→23:30)
[2017-03-16] MEDS: ALBUTEROL/IPRATROPIUM (NEB) 3 ML AMP HHN ×4 (01:28→19:33)
[2017-03-16] MEDS: SOD CHLORIDE 0.45% 1,000 ML IV (02:03)
[2017-03-16] MEDS: niCARdipine 25 MG in SOD CHLORIDE 0.9% 240 ML IV ×3 (02:04→13:44)
[2017-03-16 05:18] LABS: WHITE BLOOD COUNT 10.6 10^3/ul (4.8-10.8)
[2017-03-16 05:18] LABS: ABNORMAL IP MESSAGE 1; HEMATOCRIT 35.2 % (42.0-52.0); HEMOGLOBIN 11.7 g/dl (14.0-18.0); MEAN CORPUSCULAR HEMOGLOBIN 29.5 pg (29.0-33.0); MEAN CORPUSCULAR HGB CONC 33.2 g/dl (32.0-37.0); MEAN CORPUSCULAR VOLUME 88.9 fl (82.0-101.0); MEAN PLATELET VOLUME 9.9 fl (7.4-10.4); PLATELET COUNT 260 10^3/UL (140-415); POSITIVE DIFF @See below; RED BLOOD COUNT 3.96 10^6/ul (4.70-6.10); RED CELL DISTRIBUTION WIDTH 13.7 % (11.5-14.5)
[2017-03-16] MEDS: hydrALAzine 20 MG INJ IV ×2 (05:52→20:44)
[2017-03-16] MEDS: METHYLPREDNISOLONE 40 MG INJ IV ×2 (05:52→20:44)
[2017-03-16] MEDS: PANTOPRAZOLE 40 MG INJ IV (05:52)
[2017-03-16] MEDS: PIPER-TAZO 3.375 GM IV (PMX) 50 ML IVPB ×3 (05:52→20:45)
[2017-03-16 05:56] LABS: ADD MAN DIFF? YES
[2017-03-16 06:18] LABS: ANION GAP 13 (8-16); BLOOD UREA NITROGEN 63 mg/dl (7-20); CALCIUM 6.1 mg/dl (8.4-10.2); CARBON DIOXIDE 21 mmol/L (21-31); CHLORIDE 117 mmol/L (97-110); CREATININE 1.06 mg/dl (0.61-1.24); GLUCOSE 132 mg/dl (70-220); MAGNESIUM 2.8 mg/dl (1.7-2.5); PHOSPHORUS 2.6 mg/dl (2.5-4.9); POTASSIUM 3.3 mmol/L (3.5-5.1); SODIUM 148 mmol/L (135-144)
[2017-03-16] MEDS: VALPROIC ACID LIQUID CUP 250 MG/5 ML CUP NGT (08:07)
[2017-03-16] MEDS: ATENOLOL 100 MG TAB PO ×2 (08:08→20:40)
[2017-03-16] MEDS: AMLODIPINE 10 MG TAB PO (08:08)
[2017-03-16] MEDS: carBAMAZepine CHEW 100 MG CHEW PO (08:10)
[2017-03-16 08:30] LABS: ANISOCYTOSIS 1+ (0-0); BAND NEUTROPHILS #M 0.2 10^3/ul (0.0-0.6); BAND NEUTROPHILS % (M) 2 % (0-4); BURR CELLS 1+ (0-0); GIANT THROMBO% (M) 2 % (0-0); LYMPHOCYTES #M 0.5 10^3/ul (0.8-2.9); LYMPHOCYTES % (M) 5 % (15-51); MICROCYTOSIS 1+ (0-0); MONOCYTE #M 1.1 10^3/ul (0.3-0.9); MONOCYTES % (M) 11 % (0-11); MYELOCYTES #M 0.3 10^3/ul (0.0-0.0); MYELOCYTES % (M) 3 % (0-0); PLATELET ESTIMATE NORMAL; POIKILOCYTOSIS 1+ (0-0); POLYCHROMASIA 1+ (0-0); REACTIVE LYMPHOCYTES #M 0.1 10^3/ul (0.0-0.0); REACTIVE LYMPHOCYTES% (M) 1 % (0-0); SEG NEUT #M 8.3 10^3/ul (1.7-7.5); SEGMENTED NEUTROPHILS (M) % 78 % (39-77); SMUDGE%M 4 % (0-0)
[2017-03-16] MEDS: DEXTROSE 5% 1,000 ML IV (10:39)
[2017-03-16] MEDS: VANCOMYCIN 1.25 GM in SODIUM CHLORIDE 0.45 % 250 ML IVPB (10:40)
[2017-03-16] MEDS: POTASSIUM CHLORIDE 50 ML IVPB ×3 (10:52→13:43)
[2017-03-16] MEDS: VALPROATE INJ 500 MG in DEXTROSE 5% 50 ML IVPB ×2 (11:36→20:44)
[2017-03-16] MEDS: CLONIDINE 0.3 MG/24 HR PATCH TRANSDERM (17:02)
[2017-03-16] MEDS: CARBAMAZEPINE 200 MG TAB PO (20:40)
[2017-03-16] MEDS: morphine 2 MG INJ IV (20:42)
[2017-03-17] MEDS: ACCU-CHEK XX ×10 (01:26→08:30)
[2017-03-17] MEDS: niCARdipine 25 MG in SOD CHLORIDE 0.9% 240 ML IV ×3 (01:32→12:56)
[2017-03-17] MEDS: ALBUTEROL/IPRATROPIUM (NEB) 3 ML AMP HHN ×4 (02:00→20:26)
[2017-03-17] MEDS: DEXTROSE 5% 1,000 ML IV (05:08)
[2017-03-17] MEDS: PIPER-TAZO 3.375 GM IV (PMX) 50 ML IVPB ×3 (05:09→21:24)
[2017-03-17] MEDS: PANTOPRAZOLE 40 MG INJ IV (05:09)
[2017-03-17 05:48] LABS: WHITE BLOOD COUNT 14.4 10^3/ul (4.8-10.8)
[2017-03-17 05:48] LABS: ABNORMAL IP MESSAGE 1; HEMATOCRIT 38.6 % (42.0-52.0); HEMOGLOBIN 12.7 g/dl (14.0-18.0); MEAN CORPUSCULAR HEMOGLOBIN 29.5 pg (29.0-33.0); MEAN CORPUSCULAR HGB CONC 32.9 g/dl (32.0-37.0); MEAN CORPUSCULAR VOLUME 89.8 fl (82.0-101.0); MEAN PLATELET VOLUME 10.3 fl (7.4-10.4); PLATELET COUNT 341 10^3/UL (140-415); POSITIVE DIFF @See below; RED CELL DISTRIBUTION WIDTH 14.1 % (11.5-14.5)
[2017-03-17 06:02] LABS: ADD MAN DIFF? YES
[2017-03-17 06:27] LABS: ANION GAP 14 (8-16); BLOOD UREA NITROGEN 70 mg/dl (7-20); CALCIUM 6.4 mg/dl (8.4-10.2); CARBON DIOXIDE 21 mmol/L (21-31); CHLORIDE 111 mmol/L (97-110); CREATININE 1.15 mg/dl (0.61-1.24); GLUCOSE 257 mg/dl (70-220); MAGNESIUM 3.1 mg/dl (1.7-2.5); PHOSPHORUS 2.7 mg/dl (2.5-4.9); POTASSIUM 4.2 mmol/L (3.5-5.1); SODIUM 142 mmol/L (135-144)
[2017-03-17 09:11] LABS: ANISOCYTOSIS 2+ (0-0); BAND NEUTROPHILS #M 0.2 10^3/ul (0.0-0.6); BAND NEUTROPHILS % (M) 2 % (0-4); BURR CELLS 1+ (0-0); GIANT THROMBO% (M) 1 % (0-0); LYMPHOCYTES #M 0.5 10^3/ul (0.8-2.9); LYMPHOCYTES % (M) 4 % (15-51); MICROCYTOSIS 1+ (0-0); MONOCYTES % (M) 7 % (0-11); MYELOCYTES #M 0.1 10^3/ul (0.0-0.0); MYELOCYTES % (M) 1 % (0-0); PLATELET ESTIMATE NORMAL; POIKILOCYTOSIS 1+ (0-0); POLYCHROMASIA 1+ (0-0); REACTIVE LYMPHOCYTES #M 0.5 10^3/ul (0.0-0.0); REACTIVE LYMPHOCYTES% (M) 4 % (0-0); SEG NEUT #M 11.8 10^3/ul (1.7-7.5); SEGMENTED NEUTROPHILS (M) % 82 % (39-77); SMUDGE%M 3 % (0-0)
[2017-03-17] MEDS: AMLODIPINE 10 MG TAB PO (09:15)
[2017-03-17] MEDS: CARBAMAZEPINE 200 MG TAB PO ×2 (09:15→20:12)
[2017-03-17] MEDS: ATENOLOL 100 MG TAB PO ×2 (09:20→20:13)
[2017-03-17] MEDS: METHYLPREDNISOLONE 40 MG INJ IV ×2 (09:27→20:22)
[2017-03-17] MEDS: VALPROATE INJ 500 MG in DEXTROSE 5% 50 ML IVPB ×2 (09:27→20:12)
[2017-03-17] MEDS: IODIXANOL LOCM 50 ML BTL (10:00)
[2017-03-17] MEDS: SOD CHLORIDE 0.9% 100 ML (10:11)
[2017-03-17] MEDS: IODIXANOL LOCM 100 ML BTL (10:11)
[2017-03-17] MEDS: VANCOMYCIN 1.25 GM in SODIUM CHLORIDE 0.45 % 250 ML IVPB (11:21)
[2017-03-17] MEDS: INSULIN ASPART [NOVOLOG] 3 ML PEN SC ×3 (11:30→20:38)
[2017-03-17] MEDS: morphine 2 MG INJ IV (15:09)
[2017-03-17] MEDS ORDERED: FUROSEMIDE 40 MG INJ (18:36)
[2017-03-17] MEDS: FUROSEMIDE 40 MG INJ IV (19:00)
[2017-03-18] MEDS: ALBUTEROL/IPRATROPIUM (NEB) 3 ML AMP HHN ×4 (01:34→19:49)
[2017-03-18] MEDS: ACCU-CHEK XX (02:03)
[2017-03-18] MEDS ORDERED: NORepinephrine 8MG/250 ML (PMX 250 ML (02:15)
[2017-03-18 05:42] LABS: ABNORMAL IP MESSAGE 1; HEMATOCRIT 41.7 % (42.0-52.0); HEMOGLOBIN 12.7 g/dl (14.0-18.0); MEAN CORPUSCULAR HEMOGLOBIN 29.4 pg (29.0-33.0); MEAN CORPUSCULAR HGB CONC 30.5 g/dl (32.0-37.0); MEAN CORPUSCULAR VOLUME 96.5 fl (82.0-101.0); PLATELET COUNT 439 10^3/UL (140-415); POSITIVE DIFF @See below; RED BLOOD COUNT 4.32 10^6/ul (4.70-6.10); RED CELL DISTRIBUTION WIDTH 14.6 % (11.5-14.5)
[2017-03-18] MEDS: PIPER-TAZO 3.375 GM IV (PMX) 50 ML IVPB ×3 (05:42→21:47)
[2017-03-18] MEDS: PANTOPRAZOLE 40 MG INJ IV (05:42)
[2017-03-18 05:47] LABS: ADD MAN DIFF? YES; PATH REVIEW? YES
[2017-03-18 05:48] LABS: WHITE BLOOD COUNT 43.8 10^3/ul (4.8-10.8)
[2017-03-18 06:20] LABS: ALBUMIN 2.4 g/dl (3.3-4.9); ANION GAP 14 (8-16); BLOOD UREA NITROGEN 80 mg/dl (7-20); CALCIUM 6.7 mg/dl (8.4-10.2); CARBON DIOXIDE 22 mmol/L (21-31); CHLORIDE 113 mmol/L (97-110); CREATININE 1.76 mg/dl (0.61-1.24); GLUCOSE 173 mg/dl (70-220); MAGNESIUM 3.2 mg/dl (1.7-2.5); PHOSPHORUS 6.8 mg/dl (2.5-4.9); POTASSIUM 5.5 mmol/L (3.5-5.1); SODIUM 143 mmol/L (135-144)
[2017-03-18 07:22] LABS: ANION GAP 12 (8-16); BLOOD UREA NITROGEN 79 mg/dl (7-20); CALCIUM 6.8 mg/dl (8.4-10.2); CARBON DIOXIDE 22 mmol/L (21-31); CHLORIDE 114 mmol/L (97-110); CREATININE 1.76 mg/dl (0.61-1.24); GLUCOSE 172 mg/dl (70-220); POTASSIUM 5.5 mmol/L (3.5-5.1); SODIUM 142 mmol/L (135-144)
[2017-03-18 07:34] LABS: ANISOCYTOSIS 1+ (0-0); BAND NEUTROPHILS #M 4.8 10^3/ul (0.0-0.6); BAND NEUTROPHILS % (M) 11 % (0-4); HYPOCHROMASIA 1+ (0-0); LYMPHOCYTES #M 0.8 10^3/ul (0.8-2.9); LYMPHOCYTES % (M) 2 % (15-51); METAMYELOCYTES #M 0.4 10^3/ul (0.0-0.0); METAMYELOCYTES %M 1 % (0-0); MONOCYTE #M 1.7 10^3/ul (0.3-0.9); MONOCYTES % (M) 4 % (0-11); PLATELET ESTIMATE NORMAL; POIKILOCYTOSIS 1+ (0-0)
[2017-03-18] MEDS: INSULIN ASPART [NOVOLOG] 3 ML PEN SC ×4 (07:35→21:00)
[2017-03-18] MEDS: ATENOLOL 100 MG TAB PO ×2 (09:00→21:00)
[2017-03-18] MEDS: CARBAMAZEPINE 200 MG TAB PO ×2 (09:00→21:00)
[2017-03-18] MEDS: AMLODIPINE 10 MG TAB PO (09:00)
[2017-03-18] MEDS: METHYLPREDNISOLONE 40 MG INJ IV ×2 (09:06→21:47)
[2017-03-18] MEDS: VALPROATE INJ 500 MG in DEXTROSE 5% 50 ML IVPB ×2 (09:06→21:47)
[2017-03-18] MEDS: VANCOMYCIN 1.25 GM in SODIUM CHLORIDE 0.45 % 250 ML IVPB (09:20)
[2017-03-18 12:07] LABS: MYELOCYTES #M 0.8 10^3/ul (0.0-0.0); MYELOCYTES % (M) 2 % (0-0); SEG NEUT #M 37.6 10^3/ul (1.7-7.5); SEGMENTED NEUTROPHILS (M) % 81 % (39-77)
[2017-03-18] MEDS: LIDOCAINE 1% (MPF) 5 ML VIAL (13:11)
[2017-03-18 13:41] LABS: FLUID TYPE THORACENTESIS FLUID
[2017-03-18 13:52] LABS: FLD MN% 73.4 %; FLD PMN% 26.6 %; FLD RBC 0 /uL; FLD WBC 15 /cmm
[2017-03-18 13:55] LABS: FLD TYPE THORACENTHESIS
[2017-03-18 13:55] LABS: FLD CLARITY CLEAR; FLD COLOR YELLOW
[2017-03-18 13:56] LABS: FLUID GLUCOSE 100 mg/dl; FLUID LD 308 U/L; FLUID TOTAL PROTEIN < 2.0 g/dl
[2017-03-18] MEDS: hydrALAzine 20 MG INJ IV (21:48)
[2017-03-19] MEDS: ALBUTEROL/IPRATROPIUM (NEB) 3 ML AMP HHN ×4 (01:25→20:10)
[2017-03-19] MEDS: ACCU-CHEK XX (01:28)
[2017-03-19] MEDS: PIPER-TAZO 3.375 GM IV (PMX) 50 ML IVPB ×3 (05:42→21:10)
[2017-03-19] MEDS: PANTOPRAZOLE 40 MG INJ IV (05:42)
[2017-03-19 05:47] LABS: WHITE BLOOD COUNT 18.6 10^3/ul (4.8-10.8)
[2017-03-19 05:47] LABS: ABNORMAL IP MESSAGE 1; HEMATOCRIT 37.3 % (42.0-52.0); HEMOGLOBIN 11.7 g/dl (14.0-18.0); MEAN CORPUSCULAR HEMOGLOBIN 29.4 pg (29.0-33.0); MEAN CORPUSCULAR HGB CONC 31.4 g/dl (32.0-37.0); MEAN CORPUSCULAR VOLUME 93.7 fl (82.0-101.0); MEAN PLATELET VOLUME 10.6 fl (7.4-10.4); PLATELET COUNT 292 10^3/UL (140-415); POSITIVE DIFF @See below; RED BLOOD COUNT 3.98 10^6/ul (4.70-6.10); RED CELL DISTRIBUTION WIDTH 14.5 % (11.5-14.5)
[2017-03-19 05:51] LABS: ADD MAN DIFF? YES
[2017-03-19 06:29] LABS: VANCOMYCIN,RANDOM 25.2 ug/ml
[2017-03-19 06:32] LABS: ALBUMIN 2.5 g/dl (3.3-4.9); ANION GAP 19 (8-16); BLOOD UREA NITROGEN 82 mg/dl (7-20); CALCIUM 7.1 mg/dl (8.4-10.2); CARBON DIOXIDE 16 mmol/L (21-31); CHLORIDE 117 mmol/L (97-110); CREATININE 1.72 mg/dl (0.61-1.24); GLUCOSE 187 mg/dl (70-220); MAGNESIUM 3.4 mg/dl (1.7-2.5); PHOSPHORUS 4.3 mg/dl (2.5-4.9); POTASSIUM 5.1 mmol/L (3.5-5.1); SODIUM 147 mmol/L (135-144)
[2017-03-19 06:52] LABS: ANION GAP 20 (8-16); BLOOD UREA NITROGEN 82 mg/dl (7-20); CALCIUM 7.2 mg/dl (8.4-10.2); CARBON DIOXIDE 17 mmol/L (21-31); CHLORIDE 116 mmol/L (97-110); CREATININE 1.78 mg/dl (0.61-1.24); GLUCOSE 186 mg/dl (70-220); POTASSIUM 5.1 mmol/L (3.5-5.1); SODIUM 148 mmol/L (135-144)
[2017-03-19 06:59] LABS: ANISOCYTOSIS 2+ (0-0); BAND NEUTROPHILS #M 0.7 10^3/ul (0.0-0.6); BAND NEUTROPHILS % (M) 4 % (0-4); BURR CELLS 2+ (0-0); GIANT THROMBO% (M) 1 % (0-0); LYMPHOCYTES #M 0.3 10^3/ul (0.8-2.9); LYMPHOCYTES % (M) 2 % (15-51); METAMYELOCYTES #M 0.7 10^3/ul (0.0-0.0); METAMYELOCYTES %M 4 % (0-0); MICROCYTOSIS 1+ (0-0); MONOCYTE #M 1.3 10^3/ul (0.3-0.9); MONOCYTES % (M) 7 % (0-11); PLATELET ESTIMATE NORMAL; POIKILOCYTOSIS 2+ (0-0); POLYCHROMASIA 1+ (0-0); SEG NEUT #M 15.6 10^3/ul (1.7-7.5); SEGMENTED NEUTROPHILS (M) % 83 % (39-77)
[2017-03-19] MEDS: INSULIN ASPART [NOVOLOG] 3 ML PEN SC ×4 (07:59→21:17)
[2017-03-19] MEDS: LABETALOL HCL 20MG INJ IV (08:11)
[2017-03-19] MEDS: METHYLPREDNISOLONE 40 MG INJ IV (08:13)
[2017-03-19] MEDS: VALPROATE INJ 500 MG in DEXTROSE 5% 50 ML IVPB ×2 (08:13→21:10)
[2017-03-19 08:14] LABS: AADO2 Arterial 170.6 mmHg (7.0-24.0); Allen Test ACCEPTAB; Arterial Base Excess -8.7 mmol/L (-3.0-3); Arterial Blood Gas Oxygen Sat 96.1 mmHG (95.0-98.0); Arterial COHb 0.3 % (0.0-3.0); Arterial Fraction of Oxyhgb 95.5 % (93.0-99.0); Arterial HCO3 14.9 mmol/L (22.0-26.0); Arterial MetHb 0.3 % (0.0-1.5); Arterial Total Hemglobin 12.4 g/dl (12.0-18.0); Arterial pCO2 26.3 mmhg (35-45); MODE HFNC; Site Right Radial
[2017-03-19] MEDS: CARBAMAZEPINE 200 MG TAB PO ×2 (08:14→21:15)
[2017-03-19] MEDS: ATENOLOL 100 MG TAB PO ×2 (08:14→21:09)
[2017-03-19] MEDS: AMLODIPINE 10 MG TAB PO (08:15)
[2017-03-20] MEDS: hydrALAzine 20 MG INJ IV ×3 (01:13→21:01)
[2017-03-20] MEDS: ALBUTEROL/IPRATROPIUM (NEB) 3 ML AMP HHN ×4 (01:25→19:42)
[2017-03-20] MEDS: ACCU-CHEK XX (01:44)
[2017-03-20 05:12] LABS: ADD MAN DIFF? NO
[2017-03-20 05:17] LABS: ABNORMAL IP MESSAGE 1; BASOPHILS % 0.1 % (0.0-2.0); EOSINOPHILS % 0.2 % (0.0-7.0); HEMATOCRIT 34.6 % (42.0-52.0); HEMOGLOBIN 11.4 g/dl (14.0-18.0); LYMPHOCYTES # 0.8 10^3/ul (0.8-2.9); LYMPHOCYTES % 4.7 % (15.0-51.0); MEAN CORPUSCULAR HEMOGLOBIN 29.8 pg (29.0-33.0); MEAN CORPUSCULAR HGB CONC 32.9 g/dl (32.0-37.0); MEAN CORPUSCULAR VOLUME 90.3 fl (82.0-101.0); MEAN PLATELET VOLUME 10.6 fl (7.4-10.4); MONOCYTES % 11.8 % (0.0-11.0); NEUTROPHILS % 78.2 % (39.0-77.0); PLATELET COUNT 254 10^3/UL (140-415); POSITIVE DIFF @See below; RED BLOOD COUNT 3.83 10^6/ul (4.70-6.10); RED CELL DISTRIBUTION WIDTH 14.6 % (11.5-14.5)
[2017-03-20 05:17] LABS: WHITE BLOOD COUNT 16.7 10^3/ul (4.8-10.8)
[2017-03-20 05:43] LABS: ALBUMIN 2.6 g/dl (3.3-4.9); ANION GAP 14 (8-16); BLOOD UREA NITROGEN 71 mg/dl (7-20); CALCIUM 7.6 mg/dl (8.4-10.2); CARBON DIOXIDE 23 mmol/L (21-31); CHLORIDE 118 mmol/L (97-110); CREATININE 1.47 mg/dl (0.61-1.24); GLUCOSE 269 mg/dl (70-220); MAGNESIUM 3.6 mg/dl (1.7-2.5); PHOSPHORUS 2.9 mg/dl (2.5-4.9); POTASSIUM 4.5 mmol/L (3.5-5.1); SODIUM 150 mmol/L (135-144)
[2017-03-20] MEDS: PANTOPRAZOLE 40 MG INJ IV (05:57)
[2017-03-20] MEDS: PIPER-TAZO 3.375 GM IV (PMX) 50 ML IVPB (05:58)
[2017-03-20 08:37] LABS: AADO2 Arterial 97.5 mmHg (7.0-24.0); Allen Test ACCEPTAB; Arterial Base Excess -1.9 mmol/L (-3.0-3); Arterial Blood Gas Oxygen Sat 95.8 mmHG (95.0-98.0); Arterial COHb 0.3 % (0.0-3.0); Arterial Fraction of Oxyhgb 95.4 % (93.0-99.0); Arterial HCO3 21.2 mmol/L (22.0-26.0); Arterial MetHb 0.1 % (0.0-1.5); Arterial Total Hemglobin 12.6 g/dl (12.0-18.0); MODE HFNC; Site Right Radial
[2017-03-20] MEDS: METHYLPREDNISOLONE 40 MG INJ IV (09:13)
[2017-03-20] MEDS: VALPROATE INJ 500 MG in DEXTROSE 5% 50 ML IVPB ×2 (09:13→21:00)
[2017-03-20] MEDS: INSULIN ASPART [NOVOLOG] 3 ML PEN SC ×6 (09:22→21:18)
[2017-03-20] MEDS: VANCOMYCIN 1.25 GM in SODIUM CHLORIDE 0.45 % 250 ML IVPB (09:24)
[2017-03-20] MEDS: morphine 2 MG INJ IV ×2 (10:09→21:00)
[2017-03-20] MEDS: FUROSEMIDE 40 MG INJ IV (10:32)
[2017-03-20 11:09] LABS: SODIUM,URINE RANDOM 95 mmol/L (30-90)
[2017-03-20 11:46] LABS: OSMOLALITY,URINE 465 mOsm/kg (250-1200)
[2017-03-20] MEDS ORDERED: BISACODYL 10 MG SUPP PR (12:00)
[2017-03-20] MEDS ORDERED: POTASSIUM CHLORIDE 50 ML IVPB (12:00)
[2017-03-20] MEDS: INSULIN GLARGINE [LANtus] 3 ML PEN SC ×2 (12:17→20:50)
[2017-03-20] MEDS: CARBAMAZEPINE 200 MG TAB PO ×2 (12:33→20:51)
[2017-03-20] MEDS: AMLODIPINE 10 MG TAB PO (12:33)
[2017-03-20] MEDS: ATENOLOL 100 MG TAB PO ×2 (12:34→20:51)
[2017-03-20] MEDS ORDERED: CLONIDINE 0.3 MG/24 HR PATCH TRANSDERM (12:45)
[2017-03-20] MEDS: BUMETANIDE 25 MG in DEXTROSE 5% 150 ML IV (13:47)
[2017-03-20] MEDS: PIPER-TAZO 3.375 GM IV (PMX) 100 ML IVPB ×2 (16:11→21:00)
[2017-03-20] MEDS ORDERED: ASPIRIN 81 MG TAB PO (18:00)
[2017-03-20 18:18] LABS: ANION GAP 12 (8-16); BLOOD UREA NITROGEN 63 mg/dl (7-20); CALCIUM 7.7 mg/dl (8.4-10.2); CARBON DIOXIDE 25 mmol/L (21-31); CHLORIDE 116 mmol/L (97-110); CREATININE 1.39 mg/dl (0.61-1.24); GLUCOSE 272 mg/dl (70-220); POTASSIUM 4.3 mmol/L (3.5-5.1); SODIUM 149 mmol/L (135-144)
[2017-03-21] MEDS: INSULIN ASPART [NOVOLOG] 3 ML PEN SC ×9 (01:27→22:05)
[2017-03-21] MEDS: ALBUTEROL/IPRATROPIUM (NEB) 3 ML AMP HHN ×4 (01:34→21:02)
[2017-03-21] MEDS: ACCU-CHEK XX (01:51)
[2017-03-21] MEDS: PIPER-TAZO 3.375 GM IV (PMX) 100 ML IVPB ×3 (05:09→21:53)
[2017-03-21] MEDS: PANTOPRAZOLE (EC) 40 MG TAB PO (05:12)
[2017-03-21] MEDS: CARBAMAZEPINE 200 MG TAB PO ×2 (09:00→20:08)
[2017-03-21] MEDS: ATENOLOL 100 MG TAB PO ×2 (09:00→20:09)
[2017-03-21] MEDS: AMLODIPINE 10 MG TAB PO (09:00)
[2017-03-21 09:03] LABS: ALBUMIN 2.7 g/dl (3.3-4.9); ANION GAP 11 (8-16); BLOOD UREA NITROGEN 58 mg/dl (7-20); CALCIUM 8.4 mg/dl (8.4-10.2); CARBON DIOXIDE 31 mmol/L (21-31); CHLORIDE 114 mmol/L (97-110); CREATININE 1.34 mg/dl (0.61-1.24); GLUCOSE 199 mg/dl (70-220); MAGNESIUM 2.5 mg/dl (1.7-2.5); PHOSPHORUS 3.4 mg/dl (2.5-4.9); POTASSIUM 3.6 mmol/L (3.5-5.1); SODIUM 152 mmol/L (135-144)
[2017-03-21] MEDS: METHYLPREDNISOLONE 40 MG INJ IV (09:16)
[2017-03-21] MEDS: VALPROATE INJ 500 MG in DEXTROSE 5% 50 ML IVPB ×2 (10:37→21:51)
[2017-03-21] MEDS ORDERED: SILVER SULFADIAZINE 1% 25 GM CR TOP (11:00)
[2017-03-21] MEDS: BUMETANIDE 25 MG in DEXTROSE 5% 150 ML IV (11:30)
[2017-03-21] MEDS: SILVER SULFADIAZINE 1% 25 GM CR TOP (12:41)
[2017-03-21 13:09] LABS: COLLECTION PERIOD 24 hrs
[2017-03-21 14:19] LABS: COLLECTION PERIOD 24 hrs; SCRET 1.39 mg/dl (0.61-1.24); VOLUME 10200 ml/24hrs
[2017-03-21 14:20] LABS: CREATININE CLEARANCE 63.2 mls/min (84.0-162.0); VOLUME 10200 mls
[2017-03-21] MEDS: DEXTROSE IV (15:16)
[2017-03-21] MEDS: BUMETANIDE IV (15:16)
[2017-03-21] MEDS: BALSAM PERU/CASTOR OIL 60 GM TUBE TOP ×2 (15:51→21:53)
[2017-03-21] MEDS: VANCOMYCIN 1.25 GM in SODIUM CHLORIDE 0.45 % 250 ML IVPB (21:54)
[2017-03-21] MEDS: INSULIN GLARGINE [LANtus] 3 ML PEN SC (21:58)
[2017-03-22] MEDS: INSULIN ASPART [NOVOLOG] 3 ML PEN SC ×9 (01:17→22:26)
[2017-03-22] MEDS: ACCU-CHEK XX (02:00)
[2017-03-22] MEDS: ALBUTEROL/IPRATROPIUM (NEB) 3 ML AMP HHN ×4 (02:15→21:54)
[2017-03-22] MEDS: morphine 2 MG INJ IV ×3 (05:18→13:19)
[2017-03-22] MEDS: PANTOPRAZOLE 40 MG INJ IV (05:19)
[2017-03-22] MEDS: PIPER-TAZO 3.375 GM IV (PMX) 100 ML IVPB ×4 (05:21→22:22)
[2017-03-22 08:30] LABS: ALBUMIN 3.1 g/dl (3.3-4.9); ANION GAP 15 (8-16); BLOOD UREA NITROGEN 52 mg/dl (7-20); CALCIUM 8.3 mg/dl (8.4-10.2); CARBON DIOXIDE 33 mmol/L (21-31); CHLORIDE 113 mmol/L (97-110); GLUCOSE 138 mg/dl (70-220); MAGNESIUM 2.1 mg/dl (1.7-2.5); PHOSPHORUS 3.1 mg/dl (2.5-4.9); SODIUM 158 mmol/L (135-144)
[2017-03-22] MEDS: AMLODIPINE 10 MG TAB PO (09:00)
[2017-03-22] MEDS: CARBAMAZEPINE 200 MG TAB PO ×2 (09:00→21:00)
[2017-03-22] MEDS: ATENOLOL 100 MG TAB PO ×2 (09:00→21:00)
[2017-03-22] MEDS: hydrALAzine 20 MG INJ IV (09:15)
[2017-03-22] MEDS: VALPROATE INJ 500 MG in DEXTROSE 5% 50 ML IVPB ×2 (09:24→22:21)
[2017-03-22] MEDS: METHYLPREDNISOLONE 40 MG INJ IV (09:24)
[2017-03-22] MEDS: SILVER SULFADIAZINE 1% 25 GM CR TOP (09:34)
[2017-03-22] MEDS: BALSAM PERU/CASTOR OIL 60 GM TUBE TOP ×2 (09:34→22:22)
[2017-03-22] MEDS: POTASSIUM CHLORIDE 50 ML IVPB ×5 (10:28→14:25)
[2017-03-22] MEDS: BUMETANIDE IV (15:22)
[2017-03-22] MEDS: DEXTROSE IV (15:22)
[2017-03-22] MEDS: INSULIN GLARGINE [LANtus] 3 ML PEN SC (22:25)
[2017-03-23] MEDS: INSULIN ASPART [NOVOLOG] 3 ML PEN SC ×7 (01:00→20:53)
[2017-03-23] MEDS: ACCU-CHEK XX (01:46)
[2017-03-23] MEDS: ALBUTEROL/IPRATROPIUM (NEB) 3 ML AMP HHN ×4 (02:20→20:15)
[2017-03-23] MEDS: PANTOPRAZOLE 40 MG INJ IV (05:59)
[2017-03-23] MEDS: PIPER-TAZO 3.375 GM IV (PMX) 100 ML IVPB ×3 (05:59→21:50)
[2017-03-23 06:46] LABS: ADD MAN DIFF? NO
[2017-03-23 06:53] LABS: ABNORMAL IP MESSAGE 1; BASOPHILS % 0.3 % (0.0-2.0); EOSINOPHILS # 0.1 10^3/ul (0.0-0.5); EOSINOPHILS % 0.9 % (0.0-7.0); HEMATOCRIT 30.8 % (42.0-52.0); LYMPHOCYTES # 0.9 10^3/ul (0.8-2.9); LYMPHOCYTES % 9.7 % (15.0-51.0); MEAN CORPUSCULAR HEMOGLOBIN 30.3 pg (29.0-33.0); MEAN CORPUSCULAR HGB CONC 32.5 g/dl (32.0-37.0); MEAN CORPUSCULAR VOLUME 93.3 fl (82.0-101.0); MEAN PLATELET VOLUME 10.7 fl (7.4-10.4); MONOCYTE # 1.5 10^3/ul (0.3-0.9); MONOCYTES % 16.8 % (0.0-11.0); NEUTROPHIL # 6.4 10^3/ul (1.6-7.5); NEUTROPHILS % 70.9 % (39.0-77.0); PLATELET COUNT 201 10^3/UL (140-415); POSITIVE DIFF @See below; RED CELL DISTRIBUTION WIDTH 14.3 % (11.5-14.5)
[2017-03-23 07:12] LABS: ALBUMIN 2.2 g/dl (3.3-4.9); ANION GAP 14 (8-16); BLOOD UREA NITROGEN 40 mg/dl (7-20); CALCIUM 6.6 mg/dl (8.4-10.2); CARBON DIOXIDE 31 mmol/L (21-31); CHLORIDE 119 mmol/L (97-110); CREATININE 1.12 mg/dl (0.61-1.24); GLUCOSE 129 mg/dl (70-220); MAGNESIUM 1.5 mg/dl (1.7-2.5); PHOSPHORUS 2.5 mg/dl (2.5-4.9)
[2017-03-23 07:21] LABS: SODIUM 162 mmol/L (135-144)
[2017-03-23 07:22] LABS: POTASSIUM 2.2 mmol/L (3.5-5.1)
[2017-03-23] MEDS: METHYLPREDNISOLONE 40 MG INJ IV (08:34)
[2017-03-23] MEDS: POTASSIUM CHLORIDE 50 ML IVPB ×8 (08:35→20:38)
[2017-03-23] MEDS: AMLODIPINE 10 MG TAB PO (09:00)
[2017-03-23] MEDS: CARBAMAZEPINE 200 MG TAB PO ×2 (09:00→20:40)
[2017-03-23] MEDS: ATENOLOL 100 MG TAB PO ×2 (09:00→20:41)
[2017-03-23 09:19] LABS: VANCOMYCIN,TROUGH 15.2 ug/ml (10.0-20.0)
[2017-03-23] MEDS: VANCOMYCIN 1.25 GM in SODIUM CHLORIDE 0.45 % 250 ML IVPB (10:01)
[2017-03-23] MEDS: BALSAM PERU/CASTOR OIL 60 GM TUBE TOP ×2 (10:05→20:41)
[2017-03-23] MEDS: SILVER SULFADIAZINE 1% 25 GM CR TOP (10:05)
[2017-03-23] MEDS: VALPROATE INJ 500 MG in DEXTROSE 5% 50 ML IVPB ×2 (10:58→20:42)
[2017-03-23] MEDS: DEXTROSE IV (12:48)
[2017-03-23] MEDS: BUMETANIDE IV (12:48)
[2017-03-23] MEDS: D5W + KCL 20 MEQ 1,000 ML IV (18:00)
[2017-03-23] MEDS: CLONIDINE 0.3 MG/24 HR PATCH TRANSDERM (18:41)
[2017-03-23] MEDS: INSULIN GLARGINE [LANtus] 3 ML PEN SC (20:55)
[2017-03-24] MEDS: ALBUTEROL/IPRATROPIUM (NEB) 3 ML AMP HHN ×3 (01:35→13:49)
[2017-03-24] MEDS: INSULIN ASPART [NOVOLOG] 3 ML PEN SC ×4 (01:38→12:15)
[2017-03-24] MEDS: ACCU-CHEK XX (01:40)
[2017-03-24] MEDS: PIPER-TAZO 3.375 GM IV (PMX) 100 ML IVPB ×2 (05:51→13:42)
[2017-03-24] MEDS: PANTOPRAZOLE 40 MG INJ IV (05:51)
[2017-03-24 06:49] LABS: ADD MAN DIFF? NO
[2017-03-24 06:52] LABS: WHITE BLOOD COUNT 17.5 10^3/ul (4.8-10.8)
[2017-03-24 06:52] LABS: ABNORMAL IP MESSAGE 1; BASOPHIL # 0.1 10^3/ul (0.0-0.1); BASOPHILS % 0.5 % (0.0-2.0); EOSINOPHILS % 0.2 % (0.0-7.0); HEMATOCRIT 38.8 % (42.0-52.0); HEMOGLOBIN 11.9 g/dl (14.0-18.0); LYMPHOCYTES % 5.8 % (15.0-51.0); MEAN CORPUSCULAR HEMOGLOBIN 29.2 pg (29.0-33.0); MEAN CORPUSCULAR HGB CONC 30.7 g/dl (32.0-37.0); MEAN CORPUSCULAR VOLUME 95.1 fl (82.0-101.0); MEAN PLATELET VOLUME 11.3 fl (7.4-10.4); MONOCYTES % 11.3 % (0.0-11.0); NEUTROPHIL # 14.2 10^3/ul (1.6-7.5); NEUTROPHILS % 81.3 % (39.0-77.0); PLATELET COUNT 245 10^3/UL (140-415); POSITIVE DIFF @See below; RED BLOOD COUNT 4.08 10^6/ul (4.70-6.10); RED CELL DISTRIBUTION WIDTH 14.6 % (11.5-14.5)
[2017-03-24 07:20] LABS: ANION GAP 13 (8-16); BLOOD UREA NITROGEN 48 mg/dl (7-20); CALCIUM 8.5 mg/dl (8.4-10.2); CARBON DIOXIDE 37 mmol/L (21-31); CHLORIDE 111 mmol/L (97-110); CREATININE 1.35 mg/dl (0.61-1.24); GLUCOSE 231 mg/dl (70-220); MAGNESIUM 1.9 mg/dl (1.7-2.5); PHOSPHORUS 3.5 mg/dl (2.5-4.9); POTASSIUM 3.4 mmol/L (3.5-5.1); SODIUM 158 mmol/L (135-144)
[2017-03-24] MEDS: AMLODIPINE 10 MG TAB PO (08:36)
[2017-03-24] MEDS: ATENOLOL 100 MG TAB PO (08:36)
[2017-03-24] MEDS: CARBAMAZEPINE 200 MG TAB PO (08:36)
[2017-03-24] MEDS: hydrALAzine 20 MG INJ IV ×2 (08:56→13:40)
[2017-03-24] MEDS: METHYLPREDNISOLONE 40 MG INJ IV (08:58)
[2017-03-24] MEDS: VALPROATE INJ 500 MG in DEXTROSE 5% 50 ML IVPB (08:58)
[2017-03-24] MEDS: BALSAM PERU/CASTOR OIL 60 GM TUBE TOP (09:02)
[2017-03-24] MEDS: SILVER SULFADIAZINE 1% 25 GM CR TOP (09:03)
[2017-03-24] MEDS: morphine 2 MG INJ IV (11:51)
[2017-03-24] MEDS: D5W + KCL 20 MEQ 1,000 ML IV (12:09)
[2017-03-24] MEDS: DEXTROSE 5% 1,000 ML IV (13:05)
[2017-03-24] MEDS: DEXTROSE IV (15:00)
[2017-03-24] MEDS: BUMETANIDE IV (15:00)
[2017-03-24] MEDS ORDERED: BUMETANIDE 4 MG in DEXTROSE 5% 24 ML IV (20:00)
[2017-03-25] MEDS ORDERED: predniSONE 20 MG TAB GTB (09:00)
== END 2017-03-24 18:39 | disposition expired | DRG 551 ==
LOC: MS2 03-09 18:59 → TEL 03-20 14:55 → E/R 12:24 → ICU 03-10 04:11 → MS2 15:25
PROC: 5A1955Z Respiratory Ventilation, Greater than 96 Consecutive Hours (ICD-10-PCS; principal; 2017-03-10)
PROC: 0BH17EZ Insertion of Endotracheal Airway into Trachea, Via Natural or Artificial Opening (ICD-10-PCS; 2017-03-10)
PROC: 5A12012 Performance of Cardiac Output, Single, Manual (ICD-10-PCS; 2017-03-10)
PROC: 5A2204Z Restoration of Cardiac Rhythm, Single (ICD-10-PCS; 2017-03-10)
PROC: 0BH17EZ Insertion of Endotracheal Airway into Trachea, Via Natural or Artificial Opening (ICD-10-PCS; 2017-03-10)
PROC: 5A12012 Performance of Cardiac Output, Single, Manual (ICD-10-PCS; 2017-03-10)
PROC: 02HV33Z Insertion of Infusion Device into Superior Vena Cava, Percutaneous Approach (ICD-10-PCS; 2017-03-10)
PROC: 5A2204Z Restoration of Cardiac Rhythm, Single (ICD-10-PCS; 2017-03-10)
PROC: 0W993ZX Drainage of Right Pleural Cavity, Percutaneous Approach, Diagnostic (ICD-10-PCS; 2017-03-18)
DX: S12.300A Unspecified displaced fracture of fourth cervical vertebra, initial encounter for closed fracture (principal); J96.01 Acute respiratory failure with hypoxia; J69.0 Pneumonitis due to inhalation of food and vomit; I47.2 Ventricular tachycardia; E87.0 Hyperosmolality and hypernatremia; N17.9 Acute kidney failure, unspecified; J90 Pleural effusion, not elsewhere classified; I11.0 Hypertensive heart disease with heart failure; I50.9 Heart failure, unspecified; I48.0 Paroxysmal atrial fibrillation; G40.909 Epilepsy, unspecified, not intractable, without status epilepticus; E87.1 Hypo-osmolality and hyponatremia; T80.1XXA Vascular complications following infusion, transfusion and therapeutic injection, initial encounter; J44.9 Chronic obstructive pulmonary disease, unspecified; I46.8 Cardiac arrest due to other underlying condition; R00.1 Bradycardia, unspecified; I80.9 Phlebitis and thrombophlebitis of unspecified site; G50.0 Trigeminal neuralgia; I16.0 Hypertensive urgency; E11.42 Type 2 diabetes mellitus with diabetic polyneuropathy; W18.39XA Other fall on same level, initial encounter; Y92.012 Bathroom of single-family (private) house as the place of occurrence of the external cause; M48.10 Ankylosing hyperostosis [Forestier], site unspecified; E83.39 Other disorders of phosphorus metabolism; E87.6 Hypokalemia; Z66 Do not resuscitate; Z79.4 Long term (current) use of insulin
CPT/HCPCS: 31500; 32555; 36415; 36569; 36600; 70450; 71010; 71045; 71275; 72125; 72131; 72141; 74230; 76937; 80048; 80069; 80202; 81001; 82550; 82553; 82575; 82728; 82803; 82945; 82962; 83036; 83540; 83615; 83735; 83880; 83935; 84100; 84155; 84156; 84157; 84300; 84484; 85025; 85610; 85730; 87040; 87070; 87081; 87102; 87116; 88104; 88305; 89051; 92526; 92610; 92611; 92950; 93005; 93306; 93971; 94002; 94003; 94640; 94664; 94770; 99291-25; J1940